=== PATIENT | male | born 1985 | race Caucasian/White ===

== ENCOUNTER 2019-09-02 19:27 | Emergency (ER) | payer SELFPAY ==
--- NOTE | 2019-09-02 20:39 | EDM.PDOC ---
ED HPI GENERAL MEDICAL PROBLEM - General Chief Complaint: Respiratory Problem Stated Complaint: DIZZY NAUSEA VOMITING Time Seen by Provider: 09/02/19 20:39 Source of Information: Reports: Patient History Limitations: Reports: No Limitations - History of Present Illness INITIAL COMMENTS - FREE TEXT/NARRATIVE: 34-year-old male presents to the ED with a history of cold symptoms sinus congestion and sore throat starting last August 27. He started to feel worse on August 29 and then much worse on the morning of Sunday the with high fever headache chills, body aches with worsening productive cough. He's also developed loose watery diarrhea stools yesterday and today has had no diarrhea and voided only twice of dark-colored urine. Continues to cough paroxysmal 8. Associated fever and chills particularly in the nighttime. Therefore he has an illness that seemed to predate acute onset of influenza-like illness. He has no appetite and hasn't had any food for 2 days. He has been taking some fluids. Go to work yesterday which only made things worse. Did not go to work today. Onset: Gradual Onset Date: 08/27/19 (Him to have cold sinus congestion symptoms at onset of illness which became acute on Sunday 3 days later with high fever chills bodyaches headache in influenza-like symptoms.) Duration: Day(s):, Getting Worse Location: Reports: Generalized (Generalized myalgia with a headache and paroxysmal cough. Also loss of voice yesterday but very hoarse voice today.) Quality: Reports: Ache, Throbbing Severity: Moderate Improves with: Reports: Medication (Motrin 600 mg every 4-6 hours helps with the headache and body ache.) Worsens with: Reports: Movement Context: Denies: Activity, Exercise, Lifting, Sick Contact, Trauma, Other Associated Symptoms: Reports: Chest Pain, Cough, cough w sputum, Fever/Chills ( Central chest pain from coughing.), Loss of Appetite, Malaise, Other (Watery diarrhea 4 day before yesterday none today). 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 every 6 hours.) Generalized Pain Score (Numeric/FACES): 5 - Related Data Allergies Allergy/AdvReac Type Severity Reaction Status Date / Time No Known Allergies Allergy Verified 04/07/18 12:25 Home Meds: Home Meds HYDROcodone/Chlorphen Polis [Hydrocodone-Chlorpheniram] 5 ml PO Q12H PRN #60 ml 09/02/19 [Rx] Past Medical History - Past Health History Medical/Surgical History: Denies Medical/Surgical History - Past Surgical History GI Surgical History: Reports: Colonoscopy Social & Family History - Tobacco Use Smoking Status *Q: Current Every Day Smoker Years of Tobacco use: 4 Packs/Tins Daily: 0.3 - Caffeine Use Caffeine Use: Reports: Soda - Recreational Drug Use Recreational Drug Use: No - Living Situation & Occupation Living situation: Reports: Single Occupation: Employed ED ROS GENERAL - Review of Systems Review Of Systems: See Below Constitutional: Reports: Fever, Chills, Malaise, Weakness, Fatigue, Decreased Appetite, Weight Loss HEENT: Reports: Throat Pain Respiratory: Reports: Shortness of Breath, Cough, Sputum. Denies: Wheezing, Pleuritic Chest Pain, Hemoptysis Cardiovascular: Reports: Chest Pain, Lightheadedness. Denies: Blood Pressure Problem (Central chest pain from coughing so much), Claudication, Dyspnea on Exertion (Today.), Edema, Orthopnea Endocrine: Reports: Fatigue GI/Abdominal: Reports: Diarrhea (Had loose watery diarrhea day before yesterday 4. No blood.). Denies: Abdominal Pain, Nausea, Vomiting : Reports: Other (His only voided about twice a day of dark rm urine.) Musculoskeletal: Reports: Muscle Pain Skin: Reports: No Symptoms Neurological: Reports: Dizziness, Headache, Weakness Psychiatric: Reports: No Symptoms Hematologic/Lymphatic: Reports: No Symptoms Immunologic: Reports: No Symptoms ED EXAM, GENERAL - Physical Exam Exam: See Below Exam Limited By: No Limitations General Appearance: Alert, WD/WN, No Apparent Distress, Other (Captures 38.4. Pulse is 70 and sinus respiratory ) Eye Exam: Bilateral Eye: Normal Inspection (Does have some mild pain on lateral gaze bilaterally) Ears: Normal TMs Throat/Mouth: Normal Inspection, Normal Lips, Normal Teeth, Normal Oropharynx Head: Atraumatic (is moist.), Normocephalic Neck: Normal Inspection, Supple, Non-Tender, Full Range of Motion. No: Lymphadenopathy (L), Lymphadenopathy (R) Respiratory/Chest: Lungs Clear, No Accessory Muscle Use, Respiratory Distress ( Mild tachypnea), Rhonchi. No: Wheezing (Few rhonchi upper anterior chest.) Cardiovascular: Normal Peripheral Pulses, Regular Rate, Rhythm, No Edema, No Gallop, No Murmur, No Rub GI/Abdominal: Normal Bowel Sounds, Soft, Non-Tender, No Organomegaly, No Abnormal Bruit, No Mass, Pelvis Stable Back Exam: Normal Inspection, Full Range of Motion. No: CVA Tenderness (L), CVA Tenderness (R) Extremities: Normal Inspection, Normal Range of Motion, Non-Tender, No Pedal Edema Neurological: Alert, Oriented, CN II-XII Intact, Normal Cognition Psychiatric: Normal Affect, Normal Mood Skin Exam: Warm, Dry, Intact, Normal Color, No Rash Course - Vital Signs Last Recorded V/S: Last Vital Signs Temp 37.9 C 09/02/19 23:00 Pulse 70 09/02/19 19:42 Resp 20 09/02/19 19:42 BP 134/82 09/02/19 19:42 Pulse Ox 96 09/02/19 19:42 - Orders/Labs/Meds Orders: Active Orders 24 hr Category Date Time Status Chest 1V Frontal [CR] Stat Exams 09/02/19 20:56 Taken Dextrose 5%-Lactated Ringers 1,000 ml Med 09/02/19 21:00 Active IV ASDIRECTED Ketorolac [Toradol] Med 09/02/19 21:30 Active 30 mg IVPUSH ONETIME Blood Culture x2 Reflex Set [OM.PC] Stat Oth 09/02/19 20:52 Ordered Medication Orders Dextrose/Lactated Ringer's (Dextrose 5%-Lactated Ringers) 1,000 mls @ 999 mls/ hr IV ASDIRECTED SCAR Last Admin: 09/02/19 21:11 Dose: 999 mls/hr Ketorolac Tromethamine (Toradol) 30 mg IVPUSH ONETIME SCAR Last Admin: 09/02/19 21:37 Dose: 30 mg Labs: Laboratory Tests 09/02/19 09/02/19 Range/Units 21:05 21:05 WBC 3.72 L (4.23-9.07) K/mm3 RBC 4.48 L (4.63-6.08) M/mm3 Hgb 14.2 (13.7-17.5) gm/dl Hct 40.9 (40.1-51.0) % MCV 91.3 D (79.0-92.2) fl MCH 31.7 (25.7-32.2) pg MCHC 34.7 (32.2-35.5) g/dl RDW Std Deviation 38.4 (35.1-43.9) fL Plt Count 129 L (163-337) K/mm3 MPV 9.7 (9.4-12.3) fl Neut % (Auto) 55.6 (34.0-67.9) % Lymph % (Auto) 28.2 (21.8-53.1) % [place] % (Auto) 14.5 H (5.3-12.2) % Eos % (Auto) 1.1 (0.8-7.0) Baso % (Auto) 0.3 (0.1-1.2) % Neut # (Auto) 2.07 (1.78-5.38) K/mm3 Lymph # (Auto) 1.05 L (1.32-3.57) K/mm3 [place] # (Auto) 0.54 (0.30-0.82) K/mm3 Eos # (Auto) 0.04 (0.04-0.54) K/mm3 Baso # (Auto) 0.01 (0.01-0.08) K/mm3 Sodium 142 (136-145) mEq/L Potassium 3.9 (3.5-5.1) mEq/L Chloride 105 (98-107) mEq/L Carbon Dioxide 29 (21-32) mEq/L Anion Gap 11.9 (5-15) BUN 19 H (7-18) mg/dL Creatinine 1.1 (0.7-1.3) mg/dL Est Cr Clr Drug Dosing 104.84 mL/min Estimated GFR (MDRD) > 60 (>60) mL/min BUN/Creatinine Ratio 17.3 (14-18) Glucose 92 (74-106) mg/dL Calcium 7.8 L (8.5-10.1) mg/dL Total Bilirubin 1.7 H (0.2-1.0) mg/dL AST 41 H (15-37) U/L ALT 53 (16-63) U/L Alkaline Phosphatase 48 (46-116) U/L C-Reactive Protein 1.6 H* (<1.0) mg/dL Total Protein 7.2 (6.4-8.2) g/dl Albumin 3.9 (3.4-5.0) g/dl Globulin 3.3 gm/dL Albumin/Globulin Ratio 1.2 (1-2) Meds: Medications Generic Name Dose Route Start Last Admin Trade Name Freq PRN Reason Stop Dose Admin Dextrose/Lactated Ringer's 1,000 mls @ 999 mls/hr 09/02/19 21:00 09/02/19 21: 11 Dextrose 5%-Lactated Ringers IV 999 mls/hr ASDIRECTED SCAR Administration Ketorolac Tromethamine 30 mg 09/02/19 21:30 09/02/19 21:37 Toradol IVPUSH 30 mg ONETIME SCAR Administration Discontinued Medications Generic Name Dose Route Start Last Admin Trade Name Freq PRN Reason Stop Dose Admin Acetaminophen 975 mg 09/02/19 21:18 09/02/19 21:37 Tylenol PO 09/02/19 21:19 975 mg NOW ONE Administration Ceftriaxone Sodium 2 gm/ 100 mls @ 200 mls/hr 09/02/19 20:53 09/02/19 21:11 Sodium Chloride IV 09/02/19 21:22 Not Given ONETIME ONE - Radiology Interpretation Free Text/Narrative:: 34-year-old male presents to the ED with a mixed picture of upper respiratory tract infection. Initially seemed to develop signs and symptoms of a viral cold with nasal congestion and sinus congestion postnasal drip which then turned abruptly into high fever with chills cough or hoarseness and body aches and loss of appetite with diarrhea stools 4 the day before yesterday. Due to onset of fever and chills started on Sunday, August 30. Therefore he has signs and symptoms of upper respiratory tract infection combined with some signs and symptoms of influenza. We will have routine lab work performed. He will have an influenza screen and a chest x-ray done. He is febrile at this point time and will be given Tylenol 975 mg mg by mouth for fever relief. Given Toradol 30 mg IV for body ache and headache relief. - Re-Assessments/Exams Free Text/Narrative Re-Assessment/Exam: 09/02/19 22:34 chest x-ray is within normal limits. Cardiac silhouette is normal. Both pulmonary arteries appear mildly prominent.Labs reveal a normal white count at 3.7 to in fact mild leukopenia. This is suggestive of viral infection. The differential shows 55.6% neutrophils and 28.2% lymphocytes. Hemoglobin is 14.2 with hematocrit of 40.9. Platelet count is normal and 129, 000. Sodium is 142 with a potassium of 3.9. Chloride is 105 bicarbonate 29. Anion gap is 11.9. BUN is 19 with a creatinine of 1.1. GFR is greater than 60. Glucose is 92. Calcium is slightly low at 7.8. Bilirubin is mildly elevated at 1.7. AST is 41 with an ALT of 53 and an alkaline phosphatase of 48. 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 C-reactive protein is mildly elevated at 1.6. Total protein is 7.2 with an albumin fraction of 3.9. 09/02/19 22:59 stress the findings with the patient and his girlfriend. I will give him a note to excuse him from the workplace until Sunday which will be a week from the time he developed fever and headache and body ache. No longer be contagious at that point in time. Is to have a fever in the ED and feels but 100.3 . He'll take Motrin 600 mg as soon as he gets home. The inner dilator of IV fluids and feels somewhat better with no further abdominal pain or diarrhea. Still has a productive cough. I will discharge him home on [place] cough syrup 5 mils at bedtime as needed for cough relief. Departure - Departure Time of Disposition: 23:00 Disposition: Home, Self-Care 01 Condition: Fair Clinical Impression: Influenza due to influenza virus, type B - Discharge Information *PRESCRIPTION DRUG MONITORING PROGRAM REVIEWED*: Not Applicable *COPY OF PRESCRIPTION DRUG MONITORING REPORT IN PATIENT KALEN: Not Applicable Prescriptions: HYDROcodone/Chlorphen Polis [Hydrocodone-Chlorpheniram] 5 ml PO Q12H PRN #60 ml PRN Reason: cough relief Instructions: Influenza, Adult, [id number] Referrals: PCP,None [Primary Care Provider] - Forms: ED Department Discharge, ED Return to Work/School Form Additional Instructions: Evaluation in the emergency room today in regards to developed on August 27. She developed a viral upper respiratory tract infection or cold which infected your nose and sinuses subsequently Sunday night or Sunday you develop high fever, bodyaches, headache, increased productive cough appetite compatible with influenza. Associated loose watery diarrhea first day of illness as well. Continue to run a fever with intermittent chills and have a productive cough. Trade done does not reveal any pneumonia. Tests revealed a low normal white count compatible with a viral illness. Influenza test was positive for the type B virus. Are considered contagious for a week from the time he developed symptoms which would be until September 07. Suggest off work until that time. Suggest plenty of fluids such as Gatorade/Powerade or Pedialyte as you suggested. Daily from apple juice and grape juice and no dairy products until stools are formed back up. Continue Advil or Motrin 600 mg every 6 hours for fever and body ache and headache relief. You are near the end of the viral infection asthma symptoms usually last about 5 days. He will cough for the better part of 2 weeks. I have written a note to excuse her from the workplace until September 07 and a prescription for cough syrup that she may fill if needed for cough relief primarily at bedtime. The hour before planning to go to bed as it takes an hour to work. Sepsis Event Note - Evaluation Sepsis Screening Result: No Definite Risk - Focused Exam Vital Signs: Vital Signs Temp Temp Pulse Resp BP Pulse Ox 09/02/19 23:00 37.9 C 09/02/19 21:37 39.0 C H 09/02/19 19:42 38.4 C H 70 20 134/82 96 Date Exam was Performed: 09/02/19 Time Exam was Performed: 23:19 - My Orders Last 24 Hours: My Active Orders 09/02/19 20:52 Blood Culture x2 Reflex Set [OM.PC] Stat 09/02/19 20:56 Chest 1V Frontal [CR] Stat 09/02/19 21:00 Dextrose 5%-Lactated Ringers 1,000 ml IV ASDIRECTED 09/02/19 21:30 Ketorolac [Toradol] 30 mg IVPUSH ONETIME - Assessment/Plan Last 24 Hours: My Active Orders 09/02/19 20:52 Blood Culture x2 Reflex Set [OM.PC] Stat 09/02/19 20:56 Chest 1V Frontal [CR] Stat 09/02/19 21:00 Dextrose 5%-Lactated Ringers 1,000 ml IV ASDIRECTED 09/02/19 21:30 Ketorolac [Toradol] 30 mg IVPUSH ONETIME
[2019-09-02] MEDS ORDERED: cefTRIAXone 2 GM in Sodium Chloride 0.9% 100 ML IV ONE (20:53)
[2019-09-02] MEDS ORDERED: Dextrose 5%-Lactated Ringers 1,000 ML IV SCH (21:00)
[2019-09-02] MEDS ORDERED: Acetaminophen 325 MG Tab PO ONE (21:18)
[2019-09-02] MEDS ORDERED: Ketorolac 30 MG/ML SDV IVPUSH SCH (21:30)
--- NOTE | 2019-09-03 11:49 | CR ---
Chest: Portable view of the chest was obtained. Comparison: No prior chest imaging is available. Heart size and mediastinum are normal. Lungs are clear. Bony structures shows an old unhealed fracture within the distal right clavicle. No acute osseous finding is seen. Impression: 1. Nothing acute is appreciated on portable chest x-ray. Diagnostic code #2 This report was dictated in [place] Standard Time
== END 2019-09-02 23:15 | disposition home or self-care (01) ==
LOC: JD.ED 19:27
DX: J10.1 Influenza due to other identified influenza virus with other respiratory manifestations (principal); F17.210 Nicotine dependence, cigarettes, uncomplicated
CPT/HCPCS: 36415; 71045; 80053; 85025; 86140; 87804; 96361; 96374; 99284; A9270; J1885; J7121; 99283

== ENCOUNTER 2019-10-16 14:20 | Emergency (ER) | payer BC, OTHER ==
--- NOTE | 2019-10-16 17:12 | EDM.PDOC ---
ED HPI GENERAL MEDICAL PROBLEM - General Chief Complaint: Abdominal Pain Stated Complaint: ABDOMINAL PAIN Time Seen by Provider: 10/16/19 15:09 Source of Information: Reports: Patient History Limitations: Reports: No Limitations - History of Present Illness INITIAL COMMENTS - FREE TEXT/NARRATIVE: Patient is a 34-year-old male who presents with complaints of generalized abdominal discomfort, mild headache with increased fatigue and chills, mild cough, and headache. Patient states he has had problems with generalized chronic abdominal pain over the last couple years. This particular episode of abdominal discomfort began 2 days ago. He complains of a "nagging "pain to the bilateral lower quadrants of his abdomen that is worsened by eating. Patient has had a history of blood in his stool and has had a negative colonoscopy done last fall. He denies any blood in his stool at this time. Denies any diarrhea , nausea, or vomiting. He states he has been more tired than normal and will have flashes and chills. He states that he had influenza B on [place] even though symptoms lasted for about a week. Denies any known fever or shortness of breath at this time. Patient states he has had chronically elevated bilirubins in the past with no known cause. 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 [No Known Home Meds] 10/16/19 [History] Past Medical History - Past Health History Medical/Surgical History: Denies Medical/Surgical History - Past Surgical History GI Surgical History: Reports: Colonoscopy Social & Family History - Tobacco Use Smoking Status *Q: Never Smoker - Caffeine Use Caffeine Use: Reports: Soda - Recreational Drug Use Recreational Drug Use: No - Living Situation & Occupation Living situation: Reports: Single Occupation: Employed ED ROS GENERAL - Review of Systems Review Of Systems: Comprehensive ROS is negative, except as noted in HPI. ED EXAM, GI/ABD - Physical Exam Exam: See Below Exam Limited By: No Limitations General Appearance: Alert, WD/WN, No Apparent Distress Ears: Normal External Exam, Normal Canal, Hearing Grossly Normal, Normal TMs Nose: Normal Inspection, Normal Mucosa, No Blood Throat/Mouth: Normal Inspection, Normal Lips, Normal Teeth, Normal Gums, Normal Oropharynx, Normal Voice, No Airway Compromise Head: Atraumatic, Normocephalic Respiratory/Chest: No Respiratory Distress, Lungs Clear, Normal Breath Sounds, No Accessory Muscle Use, Chest Non-Tender Cardiovascular: Normal Peripheral Pulses, Regular Rate, Rhythm, No Edema, No Gallop, No JVD, No Murmur, No Rub GI/Abdominal Exam: Normal Bowel Sounds, Soft, No Organomegaly, No Distention, No Abnormal Bruit, No Mass, Pelvis Stable, Tender (Generalized tenderness throughout. Worse in the left and right lower quadrants near the hip bones. No guarding rigidity or rebound tenderness present.) Neurological: Alert, Oriented, CN II-XII Intact, Normal Cognition, Normal Gait, Normal Reflexes, No Motor/Sensory Deficits Psychiatric: Normal Affect, Normal Mood Skin Exam: Warm, Dry, Intact, Normal Color, No Rash Course - Vital Signs Last Recorded V/S: Last Vital Signs Temp 98.7 F 10/16/19 14:48 Pulse 73 10/16/19 14:48 Resp 18 10/16/19 14:48 BP 127/78 10/16/19 14:48 Pulse Ox 98 10/16/19 14:48 - Orders/Labs/Meds Orders: Active Orders 24 hr Category Date Time Status Abdomen 2V AP Flat Upright [CR] Stat Exams 10/16/19 15:24 Taken Labs: Laboratory Tests 10/16/19 10/16/19 10/16/19 Range/Units 15:45 15:45 15:45 WBC 4.53 (4.23-9.07) K/mm3 RBC 4.94 (4.63-6.08) M/mm3 Hgb 15.9 D (13.7-17.5) gm/dl Hct 45.3 (40.1-51.0) % MCV 91.7 (79.0-92.2) fl MCH 32.2 (25.7-32.2) pg MCHC 35.1 (32.2-35.5) g/dl RDW Std Deviation 39.7 (35.1-43.9) fL Plt Count 205 D (163-337) K/mm3 MPV 9.9 (9.4-12.3) fl Neut % (Auto) 63.8 (34.0-67.9) % Lymph % (Auto) 22.7 (21.8-53.1) % [place] % (Auto) 8.4 (5.3-12.2) % Eos % (Auto) 4.2 (0.8-7.0) Baso % (Auto) 0.7 (0.1-1.2) % Neut # (Auto) 2.89 (1.78-5.38) K/mm3 Lymph # (Auto) 1.03 L (1.32-3.57) K/mm3 [place] # (Auto) 0.38 (0.30-0.82) K/mm3 Eos # (Auto) 0.19 (0.04-0.54) K/mm3 Baso # (Auto) 0.03 (0.01-0.08) K/mm3 Sodium 137 (136-145) mEq/L Potassium 4.0 (3.5-5.1) mEq/L Chloride 102 (98-107) mEq/L Carbon Dioxide 26 (21-32) mEq/L Anion Gap 13.0 (5-15) BUN 9 (7-18) mg/dL Creatinine 1.0 (0.7-1.3) mg/dL Est Cr Clr Drug Dosing 115.32 mL/min Estimated GFR (MDRD) > 60 (>60) mL/min BUN/Creatinine Ratio 9.0 L (14-18) Glucose 89 (74-106) mg/dL Calcium 8.9 (8.5-10.1) mg/dL Total Bilirubin 1.9 H (0.2-1.0) mg/dL AST 14 L (15-37) U/L ALT 24 (16-63) U/L Alkaline Phosphatase 71 (46-116) U/L C-Reactive Protein <0.2 (<1.0) mg/dL Total Protein 7.7 (6.4-8.2) g/dl Albumin 4.2 (3.4-5.0) g/dl Globulin 3.5 gm/dL Albumin/Globulin Ratio 1.2 (1-2) Lipase 101 (73-393) U/L Urine Color (Yellow) Urine Appearance (Clear) Urine pH (5.0-8.0) Ur Specific [place] (1.005-1.030) Urine Protein (Negative) Urine Glucose (UA) (Negative) Urine Ketones (Negative) Urine Occult Blood (Negative) Urine Nitrite (Negative) Urine Bilirubin (Negative) Urine Urobilinogen (0.2-1.0) Ur Leukocyte Esterase (Negative) Urine RBC (0-5) /hpf Urine WBC (0-5) /hpf Ur Squamous Epith Cells (0-5) /hpf Urine Bacteria (FEW) /hpf Urine Mucus (FEW) /hpf 10/16/19 Range/Units 16:09 WBC (4.23-9.07) K/mm3 RBC (4.63-6.08) M/mm3 Hgb (13.7-17.5) gm/dl Hct (40.1-51.0) % MCV (79.0-92.2) fl MCH (25.7-32.2) pg MCHC (32.2-35.5) g/dl RDW Std Deviation (35.1-43.9) fL Plt Count (163-337) K/mm3 MPV (9.4-12.3) fl Neut % (Auto) (34.0-67.9) % Lymph % (Auto) (21.8-53.1) % [place] % (Auto) (5.3-12.2) % Eos % (Auto) (0.8-7.0) Baso % (Auto) (0.1-1.2) % Neut # (Auto) (1.78-5.38) K/mm3 Lymph # (Auto) (1.32-3.57) K/mm3 [place] # (Auto) (0.30-0.82) K/mm3 Eos # (Auto) (0.04-0.54) K/mm3 Baso # (Auto) (0.01-0.08) K/mm3 Sodium (136-145) mEq/L Potassium (3.5-5.1) mEq/L Chloride (98-107) mEq/L Carbon Dioxide (21-32) mEq/L Anion Gap (5-15) BUN (7-18) mg/dL Creatinine (0.7-1.3) mg/dL Est Cr Clr Drug Dosing mL/min Estimated GFR (MDRD) (>60) mL/min BUN/Creatinine Ratio (14-18) Glucose (74-106) mg/dL Calcium (8.5-10.1) mg/dL Total Bilirubin (0.2-1.0) mg/dL AST (15-37) U/L ALT (16-63) U/L Alkaline Phosphatase (46-116) U/L C-Reactive Protein (<1.0) mg/dL Total Protein (6.4-8.2) g/dl Albumin (3.4-5.0) g/dl Globulin gm/dL Albumin/Globulin Ratio (1-2) Lipase (73-393) U/L Urine Color Yellow (Yellow) Urine Appearance Clear (Clear) Urine pH 8.5 H (5.0-8.0) Ur Specific [place] 1.020 (1.005-1.030) Urine Protein Negative (Negative) Urine Glucose (UA) Negative (Negative) Urine Ketones Negative (Negative) Urine Occult Blood Negative (Negative) Urine Nitrite Negative (Negative) Urine Bilirubin Negative (Negative) Urine Urobilinogen 0.2 (0.2-1.0) Ur Leukocyte Esterase Negative (Negative) Urine RBC 0-5 (0-5) /hpf Urine WBC 0-5 (0-5) /hpf Ur Squamous Epith Cells Not seen (0-5) /hpf Urine Bacteria Rare (FEW) /hpf Urine Mucus Not seen (FEW) /hpf - Re-Assessments/Exams Free Text/Narrative Re-Assessment/Exam: 10/16/19 17:15 Patient's hematology was grossly unremarkable with the exception of a mildly elevated bilirubin at 1.9. Urinalysis was negative for any signs of infection. Abdomen x-ray showed a mild amount of increased stool through his ascending and transverse colon, as well as a small amount of the descending colon. I feel it is possible he is suffering from a viral illness however, the increase stool may also be contributing to his nonspecific abdominal pain. We will discharge him home with the recommendation that he take some mag citrate and see if this improves his symptoms. Patient experience any worsening symptoms, I told him to return to the emergency department. I did discuss with him that it would be beneficial to him to establish a primary care provider that can follow his chronic abdominal discomfort and possibly do a referral to gastroenterology if they deem necessary. He states that he will call to schedule a follow-up appointment with a primary care provider next week. Departure - Departure Time of Disposition: 17:15 Disposition: Home, Self-Care 01 Condition: Fair Clinical Impression: Viral illness - Discharge Information *PRESCRIPTION DRUG MONITORING PROGRAM REVIEWED*: No *COPY OF PRESCRIPTION DRUG MONITORING REPORT IN PATIENT KALEN: No Instructions: Viral Illness, Adult Referrals: PCP,None [Primary Care Provider] - Additional Instructions: You were seen in the emergency department today for generalized abdominal pain worse in the lower abdomen, headache, increased fatigue, and cough. Your work- up included blood work, urinalysis, and an abdomen x-ray. The work-up was normal, however there was some mild increased stool throughout the colon. As we discussed, you can try taking some magnesium citrate to cleanse your bowel and see if this improves your symptoms. 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 If you should experience any worsening symptoms, please do not hesitate to return to the emergency department. Sepsis Event Note - Evaluation Sepsis Screening Result: No Definite Risk - Focused Exam Vital Signs: Vital Signs Temp Pulse Resp BP Pulse Ox 10/16/19 14:48 98.7 F 73 18 127/78 98 Date Exam was Performed: 10/16/19 Time Exam was Performed: 17:07 - My Orders Last 24 Hours: My Active Orders 10/16/19 15:24 Abdomen 2V AP Flat Upright [CR] Stat - Assessment/Plan Last 24 Hours: My Active Orders 10/16/19 15:24 Abdomen 2V AP Flat Upright [CR] Stat
--- NOTE | 2019-10-17 07:17 | CR ---
Abdomen: Supine and upright views of the abdomen were obtained. Scattered gas within small bowel and colon is seen. This bowel gas pattern is felt to be within normal limits. No free air is seen. Bony structures are unremarkable. Calcifications are seen within the pelvis which are felt compatible with phleboliths. Impression: 1. Nothing acute is suspected on two-view abdominal x-ray. Diagnostic code #2 Study was dictated in [place] [employer] Time
== END 2019-10-16 17:24 | disposition home or self-care (01) ==
LOC: JD.ED 14:20
DX: B34.9 Viral infection, unspecified (principal)
CPT/HCPCS: 36415; 74019; 74019-26; 80053; 81001; 83690; 85025; 86140; 87804; 99282; 99284-25

== ENCOUNTER 2024-03-08 11:28 | Emergency (ER) | payer BC ==
[2024-03-08 13:25] LABS: BASOPHILS PERCENT AUTO 0.2 % (0.0-1.0); EOSINOPHILS ABSOLUTE AUTO 0.3 K/mm3 (0.0-0.4); HEMATOCRIT 38.9 % (42.0-52.0); HEMOGLOBIN 13.5 gm/dl (14.0-18.0); IMMATURE GRAN ABSOLUTE AUTO 0.02 K/mm3 (0.00-0.05); IMMATURE GRAN PERCENT AUTO 0.5 % (0.0-0.4); LYMPHOCYTES ABSOLUTE AUTO 1.5 K/mm3 (1.0-4.8); LYMPHOCYTES PERCENT AUTO 36.2 % (24.0-44.0); MEAN CORPUSCULAR HEMOGLOBIN 31.3 pg (28.0-32.0); MEAN CORPUSCULAR HGB CONC 34.7 g/dl (32.0-36.0); MEAN CORPUSCULAR VOLUME 90.3 fl (83.0-99.0); MEAN PLATELET VOLUME 9.6 fl (9.4-12.4); MONOCYTES ABSOLUTE AUTO 0.4 K/mm3 (0.0-0.8); MONOCYTES PERCENT AUTO 8.7 % (0.0-8.0); NEUTROPHILS PERCENT AUTO 48.4 % (41.0-71.0); PLATELET COUNT,PLT 140 K/mm3 (150-400); RED BLOOD CELL COUNT 4.31 M/mm3 (4.52-5.90); WHITE BLOOD CELL COUNT,WBC 4.14 K/mm3 (3.9-11.3)
[2024-03-08 13:44] LABS: A/G RATIO 1.1 (1-2); ALANINE AMINOTRANSFERASE,ALT 20 U/L (16-63); ALBUMIN 3.7 g/dl (3.4-5.0); ALKALINE PHOSPHATASE 65 U/L (46-116); ANION GAP 12.1 (5-15); ASPARTATE AMNIOTRANSFERASE,AST 21 U/L (15-37); BILIRUBIN TOTAL 1.7 mg/dL (0.2-1.0); BLOOD UREA NITROGEN,BUN 12 mg/dL (7-18); C-REACTIVE PROTEIN 0.09 mg/dL (<0.30); CALCIUM 8.5 mg/dL (8.5-10.1); CARBON DIOXIDE,CO2 28 mEq/L (21-32); CHLORIDE,CL 103 mEq/L (98-107); ESTIMATED GFR 99 mL/min (>60); GLUCOSE RANDOM 91 mg/dL (70-99); MAGNESIUM 2.2 mg/dL (1.8-2.4); POTASSIUM,K 4.1 mEq/L (3.5-5.1); SODIUM,NA 139 mEq/L (136-145)
== END 2024-03-08 16:47 | disposition home or self-care (01) ==
LOC: JD.ED 11:28
DX: R51.9 Headache, unspecified (principal); B34.9 Viral infection, unspecified
CPT/HCPCS: 36415; 70486; 70486-26; 80053; 83735; 85025; 86140; 99283; 99284